=== PATIENT | male | born 1990 | race Two or more races ===

== ENCOUNTER 2024-02-19 20:18 | Emergency (ER) | payer MEDICAID, OTHER ==
[~2024-02-19] VITALS: Ht 167.6 cm; Wt 136.4 kg
[2024-02-20] MEDS ORDERED: IBUP-1456 PO (03:07)
[2024-02-20] MEDS ORDERED: CLIN1CAP70 PO (03:07)
[2024-02-20] MEDS: cefTRIAXone SOD 1,000 MG VL IM ONE (04:07)
[2024-02-20] MEDS: KETOROLAC TROMETH 60MG/2ML VIAL IM ONE (04:11)
[2024-02-20 04:43] VITALS: BP 117/74; PULSE 78; RESP 18; TEMP 98.7; O2SAT 97
== END 2024-02-20 04:54 | disposition home or self-care (01) ==
LOC: ER 20:18
DX: S62.390A Other fracture of second metacarpal bone, right hand, initial encounter for closed fracture (principal); Z79.1 Long term (current) use of non-steroidal anti-inflammatories (NSAID); Z79.2 Long term (current) use of antibiotics; Y04.2XXA Assault by strike against or bumped into by another person, initial encounter; Y93.89 Activity, other specified; Y92.89 Other specified places as the place of occurrence of the external cause; Y99.8 Other external cause status
CPT/HCPCS: 29125; 73130; 96372; 99284; J0696; J1885